=== PATIENT | female | born 1935 | race Two or more races ===

== ENCOUNTER 2018-12-05 10:00 | Inpatient (IN) | payer OTHER ==
[~2018-12-05] VITALS: Ht 152.4 cm; Wt 74.4 kg
[2018-12-05] MEDS ORDERED: NORVASC10 MG (12:15)
[2018-12-05] MEDS ORDERED: COZAAR100 MG (12:15)
[2018-12-05] MEDS ORDERED: CILOSTAZOL50 MG (12:16)
[2018-12-05] MEDS ORDERED: NEURONTIN300 MG (12:16)
[2018-12-19] MEDS ORDERED: HYOSCYAMINE0.125 M1 SL (14:04)
[2018-12-19] MEDS ORDERED: ULTRACET PO (14:04)
[2018-12-19] MEDS ORDERED: INTESTINEX680 M1 PO (14:05)
== END 2018-12-19 16:08 | disposition home or self-care (01) | DRG 330 ==
LOC: SURG 12-12 10:59 → SURH 12-14 10:00 → SURG 12-19 08:13
PROVIDERS: ADMIT Surgery
PROC: 30233N1 Transfusion of Nonautologous Red Blood Cells into Peripheral Vein, Percutaneous Approach (ICD-10-PCS; 2018-12-12)
PROC: 07TB4ZZ Resection of Mesenteric Lymphatic, Percutaneous Endoscopic Approach (ICD-10-PCS; 2018-12-14)
PROC: 0DTF4ZZ Resection of Right Large Intestine, Percutaneous Endoscopic Approach (ICD-10-PCS; principal; 2018-12-14 13:30)
PROC: 4A12X4Z Monitoring of Cardiac Electrical Activity, External Approach (ICD-10-PCS; 2018-12-15)
DX: D12.2 Benign neoplasm of ascending colon (principal); N18.4 Chronic kidney disease, stage 4 (severe); R59.0 Localized enlarged lymph nodes; D50.0 Iron deficiency anemia secondary to blood loss (chronic); I13.10 Hypertensive heart and chronic kidney disease without heart failure, with stage 1 through stage 4 chronic kidney disease, or unspecified chronic kidney disease; E21.2 Other hyperparathyroidism; G47.30 Sleep apnea, unspecified

== ENCOUNTER → 2018-12-05 | Outpatient (CLI) | payer OTHER ==
[~2018-12-05] MED LIST: CILOSTAZOL50 MG; COZAAR100 MG; NEURONTIN300 MG; NORVASC10 MG
== END | disposition home or self-care (01) ==
LOC: NUCLEAR 14:59
DX: I11.9 Hypertensive heart disease without heart failure (principal); I20.0 Unstable angina

== ENCOUNTER 2018-12-26 12:32 | Inpatient (IN) | payer OTHER ==
[~2018-12-26] VITALS: Ht 165.1 cm; Wt 72.6 kg
[~2018-12-26 12:32] MED LIST changes: +HYOSCYAMINE0.125 M1 SL; +INTESTINEX680 M1 PO; +ULTRACET PO
== END 2019-01-23 10:45 | disposition expired | DRG 871 ==
LOC: ER 12:32 → ICU-2 15:58 → ICU 12-27 18:07
PROVIDERS: ADMIT Surgery
PROC: 02HV33Z Insertion of Infusion Device into Superior Vena Cava, Percutaneous Approach (ICD-10-PCS; principal; 2018-12-26)
PROC: 4A033R1 Measurement of Arterial Saturation, Peripheral, Percutaneous Approach (ICD-10-PCS; 2018-12-28)
PROC: B246ZZZ Ultrasonography of Right and Left Heart (ICD-10-PCS; 2018-12-29)
PROC: 3E0F7GC Introduction of Other Therapeutic Substance into Respiratory Tract, Via Natural or Artificial Opening (ICD-10-PCS; 2018-12-31)
PROC: 5A09557 Assistance with Respiratory Ventilation, Greater than 96 Consecutive Hours, Continuous Positive Airway Pressure (ICD-10-PCS; 2018-12-31)
PROC: 30233N1 Transfusion of Nonautologous Red Blood Cells into Peripheral Vein, Percutaneous Approach (ICD-10-PCS; 2019-01-04)
PROC: 5A1D70Z Performance of Urinary Filtration, Intermittent, Less than 6 Hours Per Day (ICD-10-PCS; 2019-01-04)
PROC: 30233R1 Transfusion of Nonautologous Platelets into Peripheral Vein, Percutaneous Approach (ICD-10-PCS; 2019-01-06)
PROC: 30233K1 Transfusion of Nonautologous Frozen Plasma into Peripheral Vein, Percutaneous Approach (ICD-10-PCS; 2019-01-08)
DX: A41.1 Sepsis due to other specified staphylococcus (principal); K85.10 Biliary acute pancreatitis without necrosis or infection; R65.21 Severe sepsis with septic shock; I50.31 Acute diastolic (congestive) heart failure; J81.0 Acute pulmonary edema; J96.01 Acute respiratory failure with hypoxia; D65 Disseminated intravascular coagulation [defibrination syndrome]; B37.1 Pulmonary candidiasis; J18.9 Pneumonia, unspecified organism; N18.4 Chronic kidney disease, stage 4 (severe); C18.2 Malignant neoplasm of ascending colon; N17.8 Other acute kidney failure; E87.2 Acidosis; K92.2 Gastrointestinal hemorrhage, unspecified; D68.8 Other specified coagulation defects; B37.49 Other urogenital candidiasis; R57.1 Hypovolemic shock; I46.9 Cardiac arrest, cause unspecified; B96.5 Pseudomonas (aeruginosa) (mallei) (pseudomallei) as the cause of diseases classified elsewhere; B95.2 Enterococcus as the cause of diseases classified elsewhere; B95.61 Methicillin susceptible Staphylococcus aureus infection as the cause of diseases classified elsewhere; B96.29 Other Escherichia coli [E. coli] as the cause of diseases classified elsewhere; I13.10 Hypertensive heart and chronic kidney disease without heart failure, with stage 1 through stage 4 chronic kidney disease, or unspecified chronic kidney disease; D72.828 Other elevated white blood cell count; D50.8 Other iron deficiency anemias; I95.89 Other hypotension; E21.2 Other hyperparathyroidism; G47.30 Sleep apnea, unspecified; R00.0 Tachycardia, unspecified; Z66 Do not resuscitate; Z85.3 Personal history of malignant neoplasm of breast; Z72.0 Tobacco use; Z99.81 Dependence on supplemental oxygen